=== PATIENT | female | born 1965 | race Two or more races ===

== ENCOUNTER 2023-10-08 21:33 | Emergency (ER) | payer MEDICAID, OTHER ==
[~2023-10-08] VITALS: Ht 154.9 cm; Wt 63.0 kg
[2023-10-08 22:39] LABS: Urine Bacteria FEW /hpf (None Seen); Urine Blood Negative /uL (Negative); Urine Clarity Clear (Clear); Urine Color Colorless (Yellow); Urine Protein, UAD Negative (Negative); Urine Specific Gravity 1.004 (1.001-1.035); Urine Urobilinogen Normal (Negative); Urine WBC 2 /hpf (0 - 5); Urine pH 5.5 (5.0-9.0)
[2023-10-09] MEDS ORDERED: HYDR-4798 PO (00:39)
[2023-10-09] MEDS: HYDROcodone-ACET 10/325MG TAB PO ONE (03:29)
[2023-10-09 03:30] VITALS: BP 135/87; PULSE 58; RESP 18; TEMP 98.2; O2SAT 98
== END 2023-10-09 03:32 | disposition home or self-care (01) ==
LOC: ER 21:33
DX: D25.9 Leiomyoma of uterus, unspecified (principal); N28.1 Cyst of kidney, acquired; E07.9 Disorder of thyroid, unspecified
CPT/HCPCS: 74176; 81001